=== PATIENT | female | born 1935 | race Two or more races ===

== ENCOUNTER 2018-04-12 13:53 | Inpatient (IN) | payer OTHER, BC ==
[2018-04-12 17:03] VITALS: BMI 21.9
[2018-04-12] MEDS ORDERED: Ophthalmic Irrigation, Soln OU ONE (17:40)
[2018-04-12] MEDS ORDERED: Ciprofloxacin 0.3% OPTH SOLN OD SCH (18:00)
[2018-04-12] MEDS ORDERED: Tuberculin 5 Units/0.1 ml Inj ID ONE (19:32)
[2018-04-12] MEDS: Ciprofloxacin 0.3% OPTH SOLN OD SCH (21:30)
[2018-04-12] MEDS: CIPROFLOXACIN OU SCH (21:50)
[2018-04-12] MEDS: ZIRGAN OU SCH (21:50)
[2018-04-12] MEDS: CROMOLYN OU SCH (21:51)
[2018-04-13] MEDS ORDERED: Oxycodone/Acetaminophen 5/325 mg Tab PO ONE (01:52)
[2018-04-13 07:02] LABS: INR 1.5; PROTHROMBIN TIME 16.5 Seconds (9.8-13.1)
[2018-04-13 07:09] LABS: MEAN CELL VOLUME 90.3 fl (81.0-99.0); MEAN CORPUSCULAR HEMOGLOBIN 31.2 pg (27.0-31.0); MEAN CORPUSCULAR HGB CONC 34.5 g/dL (33.0-37.0); RBC 3.22 Mil/uL (3.80-5.20); RED CELL DISTRIBUTION WIDTH 16.9 % (11.5-14.5); WHITE BLOOD COUNT 8.3 K/uL (4.8-10.8)
[2018-04-13 07:29] LABS: ALB/GLOB RATIO 0.6 (1.0-2.1); ALBUMIN 3.1 g/dL (3.5-5.0); CALCIUM 8.6 mg/dL (8.4-10.2)
[2018-04-13] MEDS: Pantoprazole 40 mg EC Tab PO SCH (08:50)
[2018-04-13] MEDS: Atropine 1% OPTH.SOLN 2ml OU SCH ×2 (08:51→17:08)
[2018-04-13] MEDS: ZIRGAN OU SCH ×4 (08:52→21:12)
[2018-04-13] MEDS: Ciprofloxacin 0.3% OPTH SOLN OD SCH ×4 (08:52→21:13)
[2018-04-13] MEDS: CROMOLYN OU SCH ×4 (08:54→21:10)
[2018-04-13] MEDS: KETOTIFEN OU SCH ×2 (08:55→17:07)
[2018-04-13] MEDS ORDERED: TOFACITINIB CITRATE 10 MG PO SCH (09:00)
[2018-04-13] MEDS ORDERED: VORTIOXETINE HYDROBROMIDE 5 MG PO SCH (09:00)
--- NOTE | 2018-04-13 11:15 | CP.PCM.CON ---
History of Present Illness - History of Present Illness History of Present Illness: hx of recent shoulder surgery post op developed VZV opthalmicus tyreated at [facility] cont rx Review of Systems - Review of Systems All systems: reviewed and no additional remarkable complaints except - Constitutional Constitutional: Anorexia - EENT Eyes: absent: As Per HPI, Blind Spots, Blurred Vision, Change in Vision, Decreased Night Vision, Diplopia, Discharge, Dry Eye, Exophthalmos, Floaters, Irritation, Itchy Eyes, Loss of Peripheral Vision, Pain, Photophobia, Requires Corrective Lenses, Sees Flashes, Spots in Vision, Tunnel Vision, Other Visual Disturbances, Loss of Vision, Other Ears: absent: As Per HPI, Decreased Hearing, Ear Discharge, Ear Pain, Tinnitus, Abnormal Hearing, Disequilibrium, Dizziness, Other Nose/Mouth/Throat: absent: As Per HPI, Epistaxis, Nasal Congestion, Nasal Discharge, Nasal Obstruction, Nasal Trauma, Nose Pain, Post Nasal Drip, Sinus Pain, Sinus Pressure, Bleeding Gums, Change in Voice, Dental Pain, Dry Mouth, Dysphagia, Halitosis, Hoarsness, Lip Swelling, Mouth Lesions, Mouth Pain, Odynophagia, Sore Throat, Throat Swelling, Tongue Swelling, Facial Pain, Neck Pain, Neck Mass, Other - Cardiovascular Cardiovascular: absent: As Per HPI, Acrocyanosis, Chest Pain, Chest Pain at Rest, Chest Pain with Activity, Claudication, Diaphoresis, Dyspnea, Dyspnea on Exertion, Edema, Irregular Heart Rhythm, Pain Radiating to Arm/Neck/Jaw, Leg Edema, Leg Ulcers, Lightheadedness, Orthopnea, Palpitations, Paroxysmal Nocturnal Dyspnea, Pedal Edema, Radiating Pain, Rapid Heart Rate, Slow Heart Rate, Syncope, Other - Respiratory Respiratory: absent: As Per HPI, Cough, Dyspnea, Hemoptysis, Dyspnea on Exertion, Wheezing, Snoring, Stridor, Pain on Inspiration, Chest Congestion, Excessive Mucous Production, Change in Mucous Color, Pain with Coughing, Other - Gastrointestinal Gastrointestinal: absent: As Per HPI, Abdominal Pain, Belching, Bloating, Change in Bowel Habits, Change in Stool Character, Coffee Ground Emesis, Constipation, Cramping, Diarrhea, Dyspepsia, Dysphagia, Early Satiety, Excessive Flatus, Fecal Incontinence, Heartburn, Hematemesis, Hematochezia, Loose Stools, Melena, Nausea, Odynophagia, Temesmus, Vomiting, Other - Genitourinary Genitourinary: absent: As Per HPI, Change in Urinary Stream, Difficulty Urinating, Dysuria, Flank Pain, Hematuria, Pyuria, Nocturia, Urinary Incontinence, Urinary Frequency, Urinary Hesitance, Urinary Urgency, Voiding Freq/Small Amts, Freq UTI, Hx Renal/Bladder Calculi, Hx /Renal Surgery, Bladder Distension, Other - Reproductive: Female Reproductive:Female: absent: As Per HPI, Amenorrhea, Amenorrhea/ Control, Currently Menstual, Cycle <21 Days, Cycle >35 Days, Cycle Variable, Menses 1-7 Days, Menses >/= 8 Days, Menses Variable, Cycle > 4 Weeks Between, No Menses for 6 Months, Heavy Menses, Light Menses, Normal Menses, Spotting Between Cycles, S/P Hysterectomy, Menopausal, Post Menopausal, Premenarche, Abnormal Vaginal Bleeding, Dysmenorrhea, Dyspareunia, Genital Lesions, Genital Pruritis, Pelvic Pain, Prolapse Symptoms, Sexual Dysfunction, Vaginal Discharge, Vaginal Dryness, Vaginal Odor, Vaginal Pruritis, Other - Menstruation Menstruation: absent: As Per HPI, Amenorrhea, Amenorrhea/ Control, Currently Menstual, Cycle <21 Days, Cycle >35 Days, Cycle Variable, Menses 1-7 Days, Menses >/= 8 Days, Menses Variable, Cycle > 4 Weeks Between, No Menses for 6 Months, Heavy Menses, Light Menses, Normal Menses, Spotting Between Cycles, S/P Hysterectomy, Menopausal, Post Menopausal, Premenarche, Abnormal Vaginal Bleeding, Dysmenorrhea, Other - Musculoskeletal Musculoskeletal: As Per HPI - Integumentary Integumentary: As Per HPI, Skin Pain, Wounds - Neurological Neurological: absent: As Per HPI, Abnormal Gait, Abnormal Hearing, Abnormal Movements, Abnormal Speech, Behavioral Changes, Burning Sensations, Confusion, Convulsions, Disequilibrium, Dizziness, Numbness, Focal Weakness, Frequent Falls, Headaches, Lack of Coordination, Loss of Vision, Memory Loss, Par esthesias, Radicular Pain, Restless Legs, Sensory Deficit, Syncope, Tingling, Tremor, Vertigo, Weakness, Other Visual Disturbances, Other - Psychiatric Psychiatric: absent: As Per HPI, Abnormal Sleep Pattern, Anhedonia, Anxiety, Auditory Hallucinations, Behavioral Changes, Change in Appetite, Change in Libido, Confusion, Depression, Difficulty Concentrating, Hallucinations, Homicidal Ideation, Hopelessness, Irritability, Memory Loss, Mood Swings, Panic Attacks, Paranoia, Suicidal Ideation, Visual Hallucinations, Tactile Hallucinations, Other - Endocrine Endocrine: absent: As Per HPI, Change in Body Appearance, Change in Libido, Cold Intolorance, Deepening of Voice, Excessive Sweating, Fatigue, Flushing, Heat Intolorance, Increase in Ring/Shoe/Hat Size, Palpitations, Polydipsia, Polyphagia, Polyuria, Other - Hematologic/Lymphatic Hematologic: absent: As Per HPI, Easy Bleeding, Easy Bruising, Lymphadenopathy, Other Past Patient History - Infectious Disease Hx of Infectious Diseases: None - Tetanus Immunizations Tetanus Immunization: Unknown - Past Medical History & Family History Past Medical History?: Yes - Past Social History Smoking Status: Never Smoked - CARDIAC Hx Cardiac Disorders: Yes (CAD,A.FIB) Hx Hypertension: Yes - PULMONARY Hx Respiratory Disorders: No - NEUROLOGICAL Hx Neurological Disorder: No - HEENT Hx HEENT Problems: No Other/Comment: wears glasses - RENAL Hx Chronic Kidney Disease: No - ENDOCRINE/METABOLIC Hx Endocrine Disorders: No - HEMATOLOGICAL/ONCOLOGICAL Hx AIDS: No Hx Human Immunodeficiency Virus (HIV): No - MUSCULOSKELETAL/RHEUMATOLOGICAL Hx Falls: Yes - GASTROINTESTINAL Hx Gastrointestinal Disorders: No - GENITOURINARY/GYNECOLOGICAL Hx Genitourinary Disorders: No - PSYCHIATRIC Hx Substance Use: No - SURGICAL HISTORY Hx Surgeries: Yes Other/Comment: Left PACEMAKER 2014 - ANESTHESIA Hx Anesthesia: Yes Hx Anesthesia Reactions: No Meds Allergies/Adverse Reactions: Allergies Allergy/AdvReac Type Severity Reaction Status Date / Time No Known Allergies Allergy Verified 04/12/18 16:53 - Medications Medications: Current Medications Acyclovir (Zovirax) 800 mg PO 5XD [facility]; Protocol Atropine Sulfate (Atropine 1% Oph Soln) 1 drop OU BID [facility] Last Admin: 04/13/18 08:51 Dose: 1 drop Ciprofloxacin (Ciloxan 0.3% Ophth Soln) 1 drop OD QID [facility] Last Admin: 04/13/18 08:52 Dose: 1 drop Gabapentin (Neurontin) 300 mg PO TID [facility] Last Admin: 04/13/18 08:50 Dose: 300 mg Home Med (Mirtazapine [Mirtazapine]) 5 mg PO DAILY [facility] Home Med ([place]-3/Dha/Epa/Fish Oil [Fish Oil 500 Mg Softgel]) 1 each PO DAILY [facility] Home Med (Tofacitinib Citrate [Xeljanz]) 10 mg PO DAILY [facility] Home Med (Vortioxetine Hydrobromide [Trintellix]) 5 mg PO DAILY [facility] Home Med (Patient's Own Medication) 0.3 unit OU HS [facility] Last Admin: 04/12/18 21:50 Dose: 0.3 unit Home Med (Patient's Own Medication) 1 unit OU QID [facility] Last Admin: 04/13/18 08:54 Dose: 1 unit Home Med (Patient's Own Medication) 1 unit OU QID [facility] Last Admin: 04/13/18 08:52 Dose: 1 unit Home Med (Patient's Own Medication) 1 unit OU BID [facility] Last Admin: 04/13/18 08:55 Dose: 1 unit Home Med (Hydrocodone/Acetaminophen [Hydrocodone-Acetamin 5-325 Mg]) 5 mg PO Q6 PRN PRN Reason: for pain level 4-7 Pantoprazole Sodium (Protonix Ec Tab) 40 mg PO ACB [facility] Last Admin: 04/13/18 08:50 Dose: 40 mg Rivaroxaban (Xarelto) 20 mg PO DAILY [facility]; Protocol Physical Exam - Constitutional Appears: No Acute Distress, Cachectic, Chronically Ill - Head Exam Head Exam: NORMOCEPHALIC - Eye Exam Eye Exam: absent: Scleral icterus Additional comments: right eye min conjunctivitis no ulcers - ENT Exam ENT Exam: Mucous Membranes Dry - Neck Exam Neck exam: Negative for: Lymphadenopathy - Respiratory Exam Respiratory Exam: Decreased Breath Sounds - Cardiovascular Exam Cardiovascular Exam: REGULAR RHYTHM - GI/Abdominal Exam GI & Abdominal Exam: Diminished Bowel Sounds, Soft. absent: Tenderness - Rectal Exam Rectal Exam: Deferred - Exam Exam: NORMAL INSPECTION - Extremities Exam Extremities exam: Negative for: pedal edema - Back Exam Back exam: absent: CVA tenderness (L), CVA tenderness (R) - Neurological Exam Neurological exam: Alert, CN II-XII Intact, Oriented x3, Reflexes Normal - Psychiatric Exam Psychiatric exam: Depressed - Skin Skin Exam: Dry, Vesicles Additional comments: dry vesicles + Results - Vital Signs Recent Vital Signs: Last Vital Signs Temp 97.5 F L 04/13/18 08:13 Pulse 96 H 04/13/18 08:13 Resp 20 04/13/18 08:13 BP 103/59 L 04/13/18 08:13 Pulse Ox 99 04/13/18 08:13 - Labs Result Diagrams: 04/13/18 06:00 04/13/18 06:00 Labs: Laboratory Results - last 24 hr 04/13/18 04/13/18 04/13/18 06:00 06:00 06:00 WBC 8.3 RBC 3.22 L Hgb 10.0 L Hct 29.1 L MCV 90.3 MCH 31.2 H MCHC 34.5 RDW 16.9 H Plt Count 266 PT 16.5 H INR 1.5 Sodium 133 Potassium 4.9 Chloride 100 Carbon Dioxide 24 Anion Gap 14 BUN 17 Creatinine 1.3 H Est GFR ( Amer) 48 Est GFR (Non-Af Amer) 39 Random Glucose 105 Calcium 8.6 Phosphorus Magnesium 1.6 Total Bilirubin 1.2 AST 67 H D ALT 62 H Alkaline Phosphatase 162 H D Total Protein 8.4 H Albumin 3.1 L Globulin 5.2 H Albumin/Globulin Ratio 0.6 L 04/13/18 07:12 WBC RBC Hgb Hct MCV MCH MCHC RDW Plt Count PT INR Sodium Potassium Chloride Carbon Dioxide Anion Gap BUN Creatinine Est GFR ( Amer) Est GFR (Non-Af Amer) Random Glucose Calcium Phosphorus 4.8 H Magnesium Total Bilirubin AST ALT Alkaline Phosphatase Total Protein Albumin Globulin Albumin/Globulin Ratio Assessment & Plan (1) VZV (varicella-zoster virus) infection Status: Acute (2) Zoster ophthalmicus Status: Acute (3) Zoster ophthalmicus Status: Acute (4) Herpes zoster ophthalmicus of right eye Status: Acute (5) Herpes zoster ophthalmicus of right eye Status: Acute
--- NOTE | 2018-04-13 12:22 | RAD ---
PROCEDURE: Radiographs of the right humerus. HISTORY: s/p R humerus ORIF COMPARISON: None. FINDINGS: BONES: Limited examination consists of only a single view. The patient is status post ORIF right proximal humerus. Plate and screw fixation device noted. No displaced fractures identified. SOFT TISSUES: Normal. OTHER FINDINGS: None. IMPRESSION: Status post ORIF proximal right humerus.
[2018-04-13] MEDS: Omega-3-Acid Ethyl Esters 1 GM Cap PO SCH (12:27)
--- NOTE | 2018-04-13 14:56 | CP.PCM.CON ---
History of Present Illness - History of Present Illness History of Present Illness: Patient is an 82 y/o female well known to Dr. Loja's practice, s/p R humerus ORIF performed 03/25/18. She was discharged from [facility] following her procedure stable to [facility] rehab. 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 She was transferred to [facility] for continuance of rehabilitation for her R arm. She was recently seen by Dr. Loja in the office where trini were removed. Her pain is well controlled. She denies CP/SOB/N/V/D/fever/dysuria/melena. She admits to R eye pain due to her infection. Review of Systems - Review of Systems All systems: reviewed and no additional remarkable complaints except Review of Systems: as per HPI Past Patient History - Infectious Disease Hx of Infectious Diseases: None - Tetanus Immunizations Tetanus Immunization: Unknown - Past Medical History & Family History Past Medical History?: Yes Past Family History: Reviewed and not pertinent - Past Social History Smoking Status: Never Smoked Alcohol: None Drugs: Denies - CARDIAC Hx Cardiac Disorders: Yes (CAD,A.FIB) Hx Hypertension: Yes - PULMONARY Hx Respiratory Disorders: No - NEUROLOGICAL Hx Neurological Disorder: No - HEENT Hx HEENT Problems: No Other/Comment: wears glasses - RENAL Hx Chronic Kidney Disease: No - ENDOCRINE/METABOLIC Hx Endocrine Disorders: No - HEMATOLOGICAL/ONCOLOGICAL Hx AIDS: No Hx Human Immunodeficiency Virus (HIV): No - MUSCULOSKELETAL/RHEUMATOLOGICAL Hx Falls: Yes - GASTROINTESTINAL Hx Gastrointestinal Disorders: No - GENITOURINARY/GYNECOLOGICAL Hx Genitourinary Disorders: No - PSYCHIATRIC Hx Substance Use: No - SURGICAL HISTORY Hx Surgeries: Yes Other/Comment: Left PACEMAKER 2014 - ANESTHESIA Hx Anesthesia: Yes Hx Anesthesia Reactions: No Meds Allergies/Adverse Reactions: Allergies Allergy/AdvReac Type Severity Reaction Status Date / Time No Known Allergies Allergy Verified 04/12/18 16:53 - Medications Medications: Current Medications Acyclovir (Zovirax) 800 mg PO 5XD [facility]; Protocol Last Admin: 04/13/18 12:30 Dose: 800 mg Atropine Sulfate (Atropine 1% Oph Soln) 1 drop OU BID [facility] Last Admin: 04/13/18 08:51 Dose: 1 drop Ciprofloxacin (Ciloxan 0.3% Ophth Soln) 1 drop OD QID [facility] Last Admin: 04/13/18 12:27 Dose: 1 drop Gabapentin (Neurontin) 300 mg PO TID [facility] Last Admin: 04/13/18 12:30 Dose: 300 mg Home Med (Tofacitinib Citrate [Xeljanz]) 10 mg PO DAILY [facility] Home Med (Vortioxetine Hydrobromide [Trintellix]) 5 mg PO DAILY [facility] Home Med (Patient's Own Medication) 0.3 unit OU HS [facility] Last Admin: 04/12/18 21:50 Dose: 0.3 unit Home Med (Patient's Own Medication) 1 unit OU QID [facility] Last Admin: 04/13/18 12:27 Dose: 1 unit Home Med (Patient's Own Medication) 1 unit OU QID [facility] Last Admin: 04/13/18 12:28 Dose: 1 unit Home Med (Patient's Own Medication) 1 unit OU BID [facility] Last Admin: 04/13/18 08:55 Dose: 1 unit Mirtazapine (Remeron) 7.5 mg PO DAILY [facility] Last Admin: 04/13/18 12:26 Dose: 7.5 mg Vqetd-2-Cocm Ethyl Esters (Lovaza) 1 gm PO DAILY [facility] Last Admin: 04/13/18 12:27 Dose: 1 gm Oxycodone/Acetaminophen (Percocet 5/325 Mg Tab) 1 tab PO Q6 PRN PRN Reason: for pain level 4-7 Pantoprazole Sodium (Protonix Ec Tab) 40 mg PO ACB [facility] Last Admin: 04/13/18 08:50 Dose: 40 mg Rivaroxaban (Xarelto) 15 mg PO DAILY [facility]; Protocol Last Admin: 04/13/18 12:31 Dose: 15 mg Physical Exam - Constitutional Appears: Well, No Acute Distress - Head Exam Head Exam: ATRAUMATIC, NORMOCEPHALIC - Eye Exam Eye Exam: Periorbital swelling (to R eye with diffuse herpetic lesion ) - ENT Exam ENT Exam: Mucous Membranes Moist - Respiratory Exam Respiratory Exam: NORMAL BREATHING PATTERN - Cardiovascular Exam Cardiovascular Exam: +S1, +S2 - GI/Abdominal Exam GI & Abdominal Exam: Normal Bowel Sounds - Extremities Exam Additional comments: RUE: intact in sling, surgical wound well healed, no drainage sensation intact MN/UN/RN motor intact MN/UN/RN radial pulse intact - Neurological Exam Neurological exam: Alert, Oriented x3 - Psychiatric Exam Psychiatric exam: Normal Affect, Normal Mood - Skin Skin Exam: Normal Color, Warm Results - Vital Signs Recent Vital Signs: Last Vital Signs Temp 97.5 F L 04/13/18 08:13 Pulse 96 H 04/13/18 08:13 Resp 20 04/13/18 08:13 BP 103/59 L 04/13/18 08:13 Pulse Ox 99 04/13/18 08:13 - Labs Result Diagrams: 04/13/18 06:00 04/13/18 06:00 Labs: Laboratory Results - last 24 hr 04/13/18 04/13/18 04/13/18 06:00 06:00 06:00 WBC 8.3 RBC 3.22 L Hgb 10.0 L Hct 29.1 L MCV 90.3 MCH 31.2 H MCHC 34.5 RDW 16.9 H Plt Count 266 PT 16.5 H INR 1.5 Sodium 133 Potassium 4.9 Chloride 100 Carbon Dioxide 24 Anion Gap 14 BUN 17 Creatinine 1.3 H Est GFR ( Amer) 48 Est GFR (Non-Af Amer) 39 Random Glucose 105 Calcium 8.6 Phosphorus Magnesium 1.6 Total Bilirubin 1.2 AST 67 H D ALT 62 H Alkaline Phosphatase 162 H D Total Protein 8.4 H Albumin 3.1 L Globulin 5.2 H Albumin/Globulin Ratio 0.6 L 04/13/18 07:12 WBC RBC Hgb Hct MCV MCH MCHC RDW Plt Count PT INR Sodium Potassium Chloride Carbon Dioxide Anion Gap BUN Creatinine Est GFR ( Amer) Est GFR (Non-Af Amer) Random Glucose Calcium Phosphorus 4.8 H Magnesium Total Bilirubin AST ALT Alkaline Phosphatase Total Protein Albumin Globulin Albumin/Globulin Ratio - Impressions Impression: Accession No. : [id number] Patient Name / ID : DIANE GRAY / [id number] Exam Date : 04/13/2018 08:04:17 ( Approved ) Study Comment : Sex / Age : F / [id number] Creator : Juan Carlos Juares MD Dictator : Juan Carlos Juares MD Administrative Assistant : Lead Teacher : Juan Carlos Juares MD Approver2 : Report Date : 04/13/2018 12:15:48 My Comment : PROCEDURE: Radiographs of the right humerus. HISTORY: s/p R humerus ORIF COMPARISON: None. FINDINGS: BONES: Limited examination consists of only a single view. The patient is status post ORIF right proximal humerus. Plate and screw fixation device noted. No displaced fractures identified. SOFT TISSUES: Normal. OTHER FINDINGS: None. IMPRESSION: Status post ORIF proximal right humerus. Assessment & Plan (1) Zoster ophthalmicus Assessment and Plan: as per ID Status: Acute (2) Closed fracture of shaft of right humerus Assessment and Plan: POD #19 s/p R humerus fx ORIF doing well -Continue sling -PT/OT NWB RUE -repeat X-rays show Fixation intact, no changes from surgery -orthopedically stable -above d/w Dr. Loja in agreement Status: Inactive
[2018-04-13] MEDS: Oxycodone/Acetaminophen 5/325 mg Tab PO PRN (15:34)
[2018-04-13] MEDS: CIPROFLOXACIN OU SCH (21:11)
[2018-04-14] MEDS: Pantoprazole 40 mg EC Tab PO SCH (06:42)
[2018-04-14] MEDS: KETOTIFEN OU SCH ×2 (09:40→18:09)
[2018-04-14] MEDS: Omega-3-Acid Ethyl Esters 1 GM Cap PO SCH (09:40)
[2018-04-14] MEDS: Atropine 1% OPTH.SOLN 2ml OU SCH ×2 (09:45→17:52)
[2018-04-14] MEDS: Ciprofloxacin 0.3% OPTH SOLN OD SCH ×4 (09:50→21:33)
[2018-04-14] MEDS: CROMOLYN OU SCH ×4 (09:55→21:28)
[2018-04-14] MEDS: ZIRGAN OU SCH ×4 (10:00→21:29)
--- NOTE | 2018-04-14 11:01 | CP.PCM.HP ---
History of Present Illness - History of Present Illness History of Present Illness: pt is seen and examined, H & P dictated #[id number] Present on Admission - Present on Admission Any Indicators Present on Admission: No History of DVT/PE: No History of Uncontrolled Diabetes: No Urinary Catheter: No Decubitus Ulcer Present: No Past Patient History - Infectious Disease Hx of Infectious Diseases: None - Tetanus Immunizations Tetanus Immunization: Unknown - Past Medical History & Family History Past Medical History?: Yes Past Family History: Reviewed and not pertinent - Past Social History Smoking Status: Never Smoked Alcohol: None Drugs: Denies - CARDIAC Hx Cardiac Disorders: Yes (CAD,A.FIB) Hx Hypertension: Yes - PULMONARY Hx Respiratory Disorders: No - NEUROLOGICAL Hx Neurological Disorder: No - HEENT Hx HEENT Problems: No Other/Comment: wears glasses - RENAL Hx Chronic Kidney Disease: No - ENDOCRINE/METABOLIC Hx Endocrine Disorders: No - HEMATOLOGICAL/ONCOLOGICAL Hx AIDS: No Hx Human Immunodeficiency Virus (HIV): No - MUSCULOSKELETAL/RHEUMATOLOGICAL Hx Falls: Yes - GASTROINTESTINAL Hx Gastrointestinal Disorders: No - GENITOURINARY/GYNECOLOGICAL Hx Genitourinary Disorders: No - PSYCHIATRIC Hx Substance Use: No - SURGICAL HISTORY Hx Surgeries: Yes Other/Comment: Left PACEMAKER 2014 - ANESTHESIA Hx Anesthesia: Yes Hx Anesthesia Reactions: No Meds Allergies/Adverse Reactions: Allergies Allergy/AdvReac Type Severity Reaction Status Date / Time No Known Allergies Allergy Verified 04/12/18 16:53 Results - Vital Signs Recent Vital Signs: Last Vital Signs Temp 97 F L 04/14/18 08:12 Pulse 85 04/14/18 08:12 Resp 20 04/14/18 08:12 BP 120/67 04/14/18 08:12 Pulse Ox 98 04/14/18 08:12 - Labs Result Diagrams: 04/13/18 06:00 04/13/18 06:00
--- NOTE | 2018-04-14 12:16 | CP.PCM.CON ---
History of Present Illness - History of Present Illness History of Present Illness: Psychiatry consult note CC: "I'm okay." HPI: 82 yo female admitted to TCU s/p humerus ORIF performed on 03/25/18. Patient reports that her mood has been stable since starting Remeron. She denies acute depression/anxiety/AH/VH/SI/HI. She denies acute psychiatric complaints. 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 -Continue Remeron 7.5 mg PO HS -No acute psychiatric admission indicated at this time Past Patient History - Infectious Disease Hx of Infectious Diseases: None - Tetanus Immunizations Tetanus Immunization: Unknown - Past Medical History & Family History Past Medical History?: Yes Past Family History: Reviewed and not pertinent - Past Social History Smoking Status: Never Smoked Alcohol: None Drugs: Denies - CARDIAC Hx Cardiac Disorders: Yes (CAD,A.FIB) Hx Hypertension: Yes - PULMONARY Hx Respiratory Disorders: No - NEUROLOGICAL Hx Neurological Disorder: No - HEENT Hx HEENT Problems: No Other/Comment: wears glasses - RENAL Hx Chronic Kidney Disease: No - ENDOCRINE/METABOLIC Hx Endocrine Disorders: No - HEMATOLOGICAL/ONCOLOGICAL Hx AIDS: No Hx Human Immunodeficiency Virus (HIV): No - MUSCULOSKELETAL/RHEUMATOLOGICAL Hx Falls: Yes - GASTROINTESTINAL Hx Gastrointestinal Disorders: No - GENITOURINARY/GYNECOLOGICAL Hx Genitourinary Disorders: No - PSYCHIATRIC Hx Substance Use: No - SURGICAL HISTORY Hx Surgeries: Yes Other/Comment: Left PACEMAKER 2013 - ANESTHESIA Hx Anesthesia: Yes Hx Anesthesia Reactions: No Meds Allergies/Adverse Reactions: Allergies Allergy/AdvReac Type Severity Reaction Status Date / Time No Known Allergies Allergy Verified 04/12/18 16:53 - Medications Medications: Current Medications Acyclovir (Zovirax) 800 mg PO 5XD [facility]; Protocol Last Admin: 04/14/18 09:39 Dose: 800 mg Atropine Sulfate (Atropine 1% Oph Soln) 1 drop OU BID [facility] Last Admin: 04/14/18 09:45 Dose: 1 drop Ciprofloxacin (Ciloxan 0.3% Ophth Soln) 1 drop OD QID [facility] Last Admin: 04/14/18 09:50 Dose: 1 drop Gabapentin (Neurontin) 300 mg PO TID [facility] Last Admin: 04/14/18 09:40 Dose: 300 mg Home Med (Tofacitinib Citrate [Xeljanz]) 10 mg PO DAILY [facility] Home Med (Vortioxetine Hydrobromide [Trintellix]) 5 mg PO DAILY [facility] Home Med (Patient's Own Medication) 0.3 unit OU HS [facility] Last Admin: 04/13/18 21:11 Dose: 0.3 unit Home Med (Patient's Own Medication) 1 unit OU QID [facility] Last Admin: 04/14/18 09:55 Dose: 1 unit Home Med (Patient's Own Medication) 1 unit OU QID [facility] Last Admin: 04/14/18 10:00 Dose: 1 unit Home Med (Patient's Own Medication) 1 unit OU BID [facility] Last Admin: 04/14/18 09:40 Dose: 1 unit Mirtazapine (Remeron) 7.5 mg PO DAILY@2200 [facility] [id number] Ethyl Esters (Lovaza) 1 gm PO DAILY [facility] Last Admin: 04/14/18 09:40 Dose: 1 gm Oxycodone/Acetaminophen (Percocet 5/325 Mg Tab) 1 tab PO Q6 PRN PRN Reason: for pain level 4-7 Last Admin: 04/13/18 15:34 Dose: 1 tab Pantoprazole Sodium (Protonix Ec Tab) 40 mg PO ACB [facility] Last Admin: 04/14/18 06:42 Dose: 40 mg Rivaroxaban (Xarelto) 15 mg PO DAILY [facility]; Protocol Last Admin: 04/14/18 09:40 Dose: 15 mg Results - Vital Signs Recent Vital Signs: Last Vital Signs Temp 97 F L 04/14/18 08:12 Pulse 85 04/14/18 08:12 Resp 20 04/14/18 08:12 BP 120/67 04/14/18 08:12 Pulse Ox 98 04/14/18 08:12 - Labs Result Diagrams: 04/13/18 06:00 04/13/18 06:00
--- NOTE | 2018-04-14 15:00 | CP.PCM.PN ---
Subjective - Date & Time of Evaluation Date of Evaluation: 04/14/18 Time of Evaluation: 14:59 - Subjective Subjective: Patient seen and examined at bedside comfortable. No complaints of pain. Tolerating PT well. No new complaints. Objective - Vital Signs/Intake and Output Vital Signs (last 24 hours): Temp Pulse Resp BP Pulse Ox 97 F L 85 20 120/67 98 04/14/18 08:12 04/14/18 08:12 04/14/18 08:12 04/14/18 08:12 04/14/18 08:12 - Medications Medications: Current Medications Acyclovir (Zovirax) 800 mg PO 5XD [facility]; Protocol Last Admin: 04/14/18 13:47 Dose: 800 mg Atropine Sulfate (Atropine 1% Oph Soln) 1 drop OU BID [facility] Last Admin: 04/14/18 09:45 Dose: 1 drop Ciprofloxacin (Ciloxan 0.3% Ophth Soln) 1 drop OD QID [facility] Last Admin: 04/14/18 09:50 Dose: 1 drop Gabapentin (Neurontin) 300 mg PO TID [facility] Last Admin: 04/14/18 13:45 Dose: 300 mg Home Med (Tofacitinib Citrate [Xeljanz]) 10 mg PO DAILY [facility] Home Med (Vortioxetine Hydrobromide [Trintellix]) 5 mg PO DAILY [facility] Home Med (Patient's Own Medication) 0.3 unit OU HS [facility] Last Admin: 04/13/18 21:11 Dose: 0.3 unit Home Med (Patient's Own Medication) 1 unit OU QID [facility] Last Admin: 04/14/18 13:45 Dose: 1 unit Home Med (Patient's Own Medication) 1 unit OU QID [facility] Last Admin: 04/14/18 13:52 Dose: 1 unit Home Med (Patient's Own Medication) 1 unit OU BID [facility] Last Admin: 04/14/18 09:40 Dose: 1 unit Mirtazapine (Remeron) 7.5 mg PO DAILY@2200 [facility] Ciohx-6-Ilcg Ethyl Esters (Lovaza) 1 gm PO DAILY [facility] Last Admin: 04/14/18 09:40 Dose: 1 gm Oxycodone/Acetaminophen (Percocet 5/325 Mg Tab) 1 tab PO Q6 PRN PRN Reason: for pain level 4-7 Last Admin: 04/13/18 15:34 Dose: 1 tab Pantoprazole Sodium (Protonix Ec Tab) 40 mg PO ACB [facility] Last Admin: 04/14/18 06:42 Dose: 40 mg Rivaroxaban (Xarelto) 15 mg PO DAILY [facility]; Protocol Last Admin: 04/14/18 09:40 Dose: 15 mg - Labs Labs: 04/13/18 06:00 04/13/18 06:00 PT 16.5 Seconds (9.8-13.1) H 04/13/18 06:00 INR 1.5 04/13/18 06:00 - Extremities Exam Additional comments: RUE: intact in sling, surgical wound well healed, no drainage sensation intact MN/UN/RN motor intact MN/UN/RN radial pulse intact Assessment and Plan (1) Zoster ophthalmicus Status: Acute (2) Closed fracture of shaft of right humerus Assessment & Plan: POD #20 s/p R humerus fx ORIF doing well -Continue sling -PT/OT NWB RUE, begin Gentle ROM -orthopedically stable -above d/w Dr. Loja in agreement Status: Inactive
[2018-04-14] MEDS: CIPROFLOXACIN OU SCH (21:28)
[2018-04-15] MEDS ORDERED: DiphenhydrAMINE 50 mg/ml Inj IVP STA (02:22)
--- NOTE | 2018-04-15 06:06 | HP ---
CHIEF COMPLAINT: Transferred from [facility] for subacute rehab. HISTORY OF PRESENT ILLNESS: Ms. Payne is an 82-year-old female with past medical history of atrial fibrillation, coronary artery disease, status post permanent pacemaker placement, hypertension, rheumatoid arthritis, chronic hyponatremia, osteoarthritis, depression, hyperproteinemia, recent history of fall with right humeral fracture, underwent ORIF done by Dr. Loja. As the patient was stabilized, the patient was sent to [facility] where the patient developed herpes zoster ophthalmicus with right dendritic corneal ulcer and right iritis. The patient was transferred to [facility] on 04/05/2018, was in the hospital until 04/12/2018, discharged to [facility] for further rehabilitation. The patient is feeling better. Denied any headache or dizziness. Denied any visual changes. Denied any chest pain, shortness of breath, or wheezing. Denied any nausea, vomiting, abdominal pain, diarrhea, or constipation. Denied any other neurologic symptoms. Has been participating in physical therapy. Right upper extremity movements improving. PAST MEDICAL HISTORY: As described, CAD, atrial fibrillation, status post permanent pacemaker placement, hypertension, hyponatremia, osteoarthritis, hyperproteinemia, rheumatoid arthritis, depression, status post right upper extremity humeral fracture, status post fall. PAST SURGICAL HISTORY: x4, hysterectomy, ORIF of the right humeral fracture recently. FAMILY HISTORY: Diabetes mellitus in brother and father. Mother at age 80. She has nine sisters and three brothers. Family history of psychiatric illness in the sisters. SOCIAL HISTORY: Denies smoking, alcohol, or drug abuse. PERSONAL HISTORY: She is , living with her , having four children. She is retired. ALLERGIES: NO KNOWN DRUG ALLERGIES. MEDICATIONS: Include Xarelto 20 mg daily, Protonix 40 mg daily, fish oil, Remeron 5 mg daily, losartan 50 mg p.o. b.i.d., calcium carbonate, Percocet as needed, Trintellix 5 mg daily, Xeljanz 10 mg daily, acyclovir 800 mg p.o. five times a day, Neurontin 300 mg p.o. t.i.d., atropine eye drops, ciprofloxacin eye drops. REVIEW OF SYSTEMS: As described in history of present illness. All other systems reviewed and were found to be negative. PHYSICAL EXAMINATION: GENERAL: Elderly female, lying in bed, in no acute distress. VITAL SIGNS: Blood pressure 127/68, pulse 100, respirations 20, temperature 97 degrees Fahrenheit, O2 sat is 100% on room air. HEENT: Pupils are equal, round, and reacting to light and accommodation. Extraocular muscles intact. No icterus. No pallor. No oral thrush. Healing vesicular lesions on the right forehead. Slightly conjunctival redness, right eye. NECK: Supple. No JVD. LUNGS: Bilateral vesicular breath sounds. No wheezing. No rhonchi. CARDIOVASCULAR SYSTEM: S1 and S2 are present, irregular. ABDOMEN: Soft and nontender. Bowel sounds present. No guarding. No rigidity. No rebound tenderness noted. CENTRAL NERVOUS SYSTEM: Alert, awake, oriented x3. No focal deficits noted. EXTREMITIES: No edema. Palpable peripheral pulses. LABORATORY DATA: Labs from the hospital: WBC 8.3, hemoglobin 10, hematocrit 29.1, platelets 266. PT 16.5, INR 1.5. Sodium 133, potassium 4.9, chloride 100, bicarb 24, BUN 17, creatinine 1.3, glucose 105, calcium 8.6, phosphorus 4.8, magnesium 1.6. Total bilirubin 1.2, AST 67, ALT 62, alkaline phosphatase 162, total protein 8.4, albumin 3.1. Humeral x-ray, status post ORIF of proximal right humerus. ASSESSMENT AND PLAN: Elderly female with history of hypertension, hyperproteinemia, rheumatoid arthritis, osteoarthritis, atrial fibrillation, status post permanent pacemaker placement and on long-term anticoagulation, depression, status post fall with right humeral fracture, status post open reduction and internal fixation and recent admission to [facility] from 04/05/2018 to 04/12/2018 for herpes zoster ophthalmicus. Has been on antiviral therapy. As the patient is stabilized, transfer to [facility] for further physical therapy. 1. Right upper extremity humeral fracture, status post open reduction and internal fixation, for acute rehabilitation. 2. Herpes zoster ophthalmicus with right dendritic corneal ulcer, improved, on acyclovir and Neurontin. 3. History of hypertension. 4. History of atrial fibrillation, on Xarelto. 5. History of osteoarthritis. 6. History of rheumatoid arthritis. 7. History of depression. 8. History of chronic hyponatremia. 9. History of hyperproteinemia. PLAN: The patient is admitted to transitional care unit for rehabilitation. We will continue with physical therapy as per Orthopedics. Orthopedic consultation appreciated. Recommended sling and physical therapy. We will request ID consult with Dr. Duarte who recommended to continue with acyclovir and Neurontin. The patient's blood pressure is stable on current medication. Continue with losartan 50 mg p.o. b.i.d. Continue with Xarelto and Xeljanz for osteoarthritis. Continue with Trintellix and Remeron as recommended by Psychiatry. We will obtain psychiatric evaluation. Continue with pain management. We will continue with the GI prophylaxis. We will add further recommendations as her clinical course progresses. Tam Pettit MD
[2018-04-15] MEDS: Pantoprazole 40 mg EC Tab PO SCH (08:08)
[2018-04-15] MEDS: Ciprofloxacin 0.3% OPTH SOLN OD SCH ×4 (08:08→21:45)
[2018-04-15] MEDS: CROMOLYN OU SCH ×4 (08:13→22:19)
[2018-04-15] MEDS: KETOTIFEN OU SCH ×2 (08:18→17:50)
[2018-04-15] MEDS: Atropine 1% OPTH.SOLN 2ml OU SCH ×2 (08:25→17:46)
[2018-04-15] MEDS: Omega-3-Acid Ethyl Esters 1 GM Cap PO SCH (08:29)
[2018-04-15] MEDS: ZIRGAN OU SCH ×4 (09:33→22:20)
[2018-04-15] MEDS: Oxycodone/Acetaminophen 5/325 mg Tab PO PRN (12:07)
--- NOTE | 2018-04-15 13:23 | CP.PCM.PN ---
Subjective - Date & Time of Evaluation Date of Evaluation: 04/15/18 Time of Evaluation: 13:21 - Subjective Subjective: Patient states pain in shoulder controlled. No new complaints. Objective - Vital Signs/Intake and Output Vital Signs (last 24 hours): Temp Pulse Resp BP Pulse Ox 97.3 F L 103 H 20 127/68 98 04/14/18 21:02 04/14/18 21:02 04/14/18 21:02 04/14/18 21:02 04/14/18 21:02 - Medications Medications: Current Medications Acyclovir (Zovirax) 800 mg PO 5XD [facility]; Protocol Last Admin: 04/15/18 12:09 Dose: 800 mg Atropine Sulfate (Atropine 1% Oph Soln) 1 drop OU BID [facility] Last Admin: 04/15/18 08:25 Dose: 1 drop Ciprofloxacin (Ciloxan 0.3% Ophth Soln) 1 drop OD QID [facility] Last Admin: 04/15/18 13:13 Dose: 1 drop Gabapentin (Neurontin) 300 mg PO TID [facility] Last Admin: 04/15/18 12:09 Dose: 300 mg Home Med (Tofacitinib Citrate [Xeljanz]) 10 mg PO DAILY [facility] Home Med (Vortioxetine Hydrobromide [Trintellix]) 5 mg PO DAILY [facility] Home Med (Patient's Own Medication) 0.3 unit OU HS [facility] Last Admin: 04/14/18 21:28 Dose: 0.3 unit Home Med (Patient's Own Medication) 1 unit OU QID [facility] Last Admin: 04/15/18 13:18 Dose: 1 unit Home Med (Patient's Own Medication) 1 unit OU QID [facility] Last Admin: 04/15/18 12:09 Dose: 1 unit Home Med (Patient's Own Medication) 1 unit OU BID [facility] Last Admin: 04/15/18 08:18 Dose: 1 unit Mirtazapine (Remeron) 7.5 mg PO DAILY@2200 [facility] Last Admin: 04/14/18 23:15 Dose: 7.5 mg [id number]-[id number] Ethyl Esters (Lovaza) 1 gm PO DAILY [facility] Last Admin: 04/15/18 08:29 Dose: 1 gm Oxycodone/Acetaminophen (Percocet 5/325 Mg Tab) 1 tab PO Q6 PRN PRN Reason: for pain level 4-7 Last Admin: 04/15/18 12:07 Dose: 1 tab Pantoprazole Sodium (Protonix Ec Tab) 40 mg PO ACB [facility] Last Admin: 04/15/18 08:08 Dose: 40 mg Rivaroxaban (Xarelto) 15 mg PO DAILY [facility]; Protocol Last Admin: 04/15/18 08:30 Dose: 15 mg - Labs Labs: 04/13/18 06:00 04/13/18 06:00 PT 16.5 Seconds (9.8-13.1) H 04/13/18 06:00 INR 1.5 04/13/18 06:00 - Extremities Exam Additional comments: Right shoulder incision well healed. +ROM fingers/wrist, sesnation intact +radial pulse Assessment and Plan (1) Closed fracture of shaft of right humerus Assessment & Plan: POD#21 s/p right shoulder ORIF begin gentle ROM with PT orthopedically stable PT/OT encourage OOB d/w Dr. Loja, agrees with above Status: Inactive
--- NOTE | 2018-04-15 19:04 | CP.PCM.PN ---
Subjective - Date & Time of Evaluation Date of Evaluation: 04/15/18 Time of Evaluation: 19:04 - Subjective Subjective: pt is feeling better, rt fore head rash is healing, no cp, no sob Objective - Vital Signs/Intake and Output Vital Signs (last 24 hours): Temp Pulse Resp BP Pulse Ox 97.2 F L 88 20 124/70 100 04/15/18 16:27 04/15/18 16:27 04/15/18 16:27 04/15/18 16:27 04/15/18 16:27 - Medications Medications: Current Medications Acyclovir (Zovirax) 800 mg PO 5XD [facility]; Protocol Last Admin: 04/15/18 17:42 Dose: 800 mg Atropine Sulfate (Atropine 1% Oph Soln) 1 drop OU BID [facility] Last Admin: 04/15/18 17:46 Dose: 1 drop Ciprofloxacin (Ciloxan 0.3% Ophth Soln) 1 drop OD QID [facility] Last Admin: 04/15/18 17:55 Dose: 1 drop Gabapentin (Neurontin) 300 mg PO TID [facility] Last Admin: 04/15/18 17:43 Dose: 300 mg Home Med (Tofacitinib Citrate [Xeljanz]) 10 mg PO DAILY [facility] Home Med (Vortioxetine Hydrobromide [Trintellix]) 5 mg PO DAILY [facility] Home Med (Patient's Own Medication) 0.3 unit OU HS [facility] Last Admin: 04/14/18 21:28 Dose: 0.3 unit Home Med (Patient's Own Medication) 1 unit OU QID [facility] Last Admin: 04/15/18 17:41 Dose: 1 unit Home Med (Patient's Own Medication) 1 unit OU QID [facility] Last Admin: 04/15/18 18:01 Dose: 1 unit Home Med (Patient's Own Medication) 1 unit OU BID [facility] Last Admin: 04/15/18 17:50 Dose: 1 unit Influenza Virus Vaccine (Fluzone High-Dose(65yr Up)Pf) 180 mcg IM .ONCE ONE Stop: 04/15/18 18:39 Mirtazapine (Remeron) 7.5 mg PO DAILY@2200 [facility] Last Admin: 04/14/18 23:15 Dose: 7.5 mg [id number]-7-[id number] Ethyl Esters (Lovaza) 1 gm PO DAILY [facility] Last Admin: 04/15/18 08:29 Dose: 1 gm Oxycodone/Acetaminophen (Percocet 5/325 Mg Tab) 1 tab PO Q6 PRN PRN Reason: for pain level 4-7 Last Admin: 04/15/18 12:07 Dose: 1 tab Pantoprazole Sodium (Protonix Ec Tab) 40 mg PO ACB [facility] Last Admin: 04/15/18 08:08 Dose: 40 mg Rivaroxaban (Xarelto) 15 mg PO DAILY [facility]; Protocol Last Admin: 04/15/18 08:30 Dose: 15 mg Zolpidem Tartrate (Ambien) 5 mg PO HS PRN PRN Reason: Insomnia - Labs Labs: 04/13/18 06:00 04/13/18 06:00 PT 16.5 Seconds (9.8-13.1) H 04/13/18 06:00 INR 1.5 04/13/18 06:00 - Constitutional Appears: Well, Non-toxic - Head Exam Head Exam: ATRAUMATIC, NORMOCEPHALIC Additional comments: healing rt fore head rash - Eye Exam Eye Exam: EOMI, Normal appearance Pupil Exam: NORMAL ACCOMODATION, PERRL - ENT Exam ENT Exam: Mucous Membranes Moist, Normal Exam - Neck Exam Neck Exam: Full ROM, Normal Inspection - Respiratory Exam Respiratory Exam: Clear to Ausculation Bilateral, NORMAL BREATHING PATTERN - Cardiovascular Exam Cardiovascular Exam: REGULAR RHYTHM, +S1, +S2 - GI/Abdominal Exam GI & Abdominal Exam: Soft, Normal Bowel Sounds - Extremities Exam Extremities Exam: Full ROM, Normal Capillary Refill, Normal Inspection - Neurological Exam Neurological Exam: Alert, Awake, CN II-XII Intact, Normal Gait, Oriented x3 - Skin Skin Exam: Normal Color, Rash, Warm Additional comments: rt fore head healing zoster ophthalmicus Assessment and Plan - Assessment and Plan (Free Text) Assessment: 82 yo female with htn, hyponatremia, RA, OA, Afib, Depression s/p fall rt trini aletha FX , s/p ORIF , herpes zoster ophthalmicus is here for physical therapy 1. HTN, 2. S/p orif rt humerus 3. Herpes Zoster opthalmicus 4. Depression 5. Insomnia c/w current meds d/w Dr. Duarte d/c iso when cleared by ID c/w PT/OT
--- NOTE | 2018-04-15 19:04 | CP.PCM.PN ---
Subjective - Date & Time of Evaluation Date of Evaluation: 04/15/18 Time of Evaluation: 09:00 - Subjective Subjective: rash resolving Objective - Vital Signs/Intake and Output Vital Signs (last 24 hours): Temp Pulse Resp BP Pulse Ox 97.2 F L 88 20 124/70 100 04/15/18 16:27 04/15/18 16:27 04/15/18 16:27 04/15/18 16:27 04/15/18 16:27 - Medications Medications: Current Medications Acyclovir (Zovirax) 800 mg PO 5XD [facility]; Protocol Last Admin: 04/15/18 17:42 Dose: 800 mg Atropine Sulfate (Atropine 1% Oph Soln) 1 drop OU BID [facility] Last Admin: 04/15/18 17:46 Dose: 1 drop Ciprofloxacin (Ciloxan 0.3% Ophth Soln) 1 drop OD QID [facility] Last Admin: 04/15/18 17:55 Dose: 1 drop Gabapentin (Neurontin) 300 mg PO TID [facility] Last Admin: 04/15/18 17:43 Dose: 300 mg Home Med (Tofacitinib Citrate [Xeljanz]) 10 mg PO DAILY [facility] Home Med (Vortioxetine Hydrobromide [Trintellix]) 5 mg PO DAILY [facility] Home Med (Patient's Own Medication) 0.3 unit OU HS [facility] Last Admin: 04/14/18 21:28 Dose: 0.3 unit Home Med (Patient's Own Medication) 1 unit OU QID [facility] Last Admin: 04/15/18 17:41 Dose: 1 unit Home Med (Patient's Own Medication) 1 unit OU QID [facility] Last Admin: 04/15/18 18:01 Dose: 1 unit Home Med (Patient's Own Medication) 1 unit OU BID [facility] Last Admin: 04/15/18 17:50 Dose: 1 unit Influenza Virus Vaccine (Fluzone High-Dose(65yr Up)Pf) 180 mcg IM .ONCE ONE Stop: 04/15/18 18:39 Mirtazapine (Remeron) 7.5 mg PO DAILY@2200 [facility] Last Admin: 04/14/18 23:15 Dose: 7.5 mg Aplkp-9-Tzju Ethyl Esters (Lovaza) 1 gm PO DAILY [facility] Last Admin: 04/15/18 08:29 Dose: 1 gm Oxycodone/Acetaminophen (Percocet 5/325 Mg Tab) 1 tab PO Q6 PRN PRN Reason: for pain level 4-7 Last Admin: 04/15/18 12:07 Dose: 1 tab Pantoprazole Sodium (Protonix Ec Tab) 40 mg PO ACB [facility] Last Admin: 04/15/18 08:08 Dose: 40 mg Rivaroxaban (Xarelto) 15 mg PO DAILY [facility]; Protocol Last Admin: 04/15/18 08:30 Dose: 15 mg Zolpidem Tartrate (Ambien) 5 mg PO HS PRN PRN Reason: Insomnia - Labs Labs: 04/13/18 06:00 04/13/18 06:00 PT 16.5 Seconds (9.8-13.1) H 04/13/18 06:00 INR 1.5 04/13/18 06:00 - Constitutional Appears: Non-toxic, Chronically Ill - Head Exam Head Exam: NORMOCEPHALIC - Eye Exam Eye Exam: PERRL - ENT Exam ENT Exam: Mucous Membranes Dry - Neck Exam Neck Exam: absent: Lymphadenopathy - Respiratory Exam Respiratory Exam: Decreased Breath Sounds - Cardiovascular Exam Cardiovascular Exam: REGULAR RHYTHM - GI/Abdominal Exam GI & Abdominal Exam: Distended - Rectal Exam Rectal Exam: Deferred - Extremities Exam Extremities Exam: absent: Joint Swelling - Back Exam Back Exam: absent: CVA tenderness (L), CVA tenderness (R) Assessment and Plan (1) VZV (varicella-zoster virus) infection Status: Acute (2) Zoster ophthalmicus Status: Acute (3) Zoster ophthalmicus Status: Acute (4) Herpes zoster ophthalmicus of right eye Status: Acute (5) Herpes zoster ophthalmicus of right eye Status: Acute - Assessment and Plan (Free Text) Assessment: rash resolving ok to d/c iso
[2018-04-15] MEDS: CIPROFLOXACIN OU SCH (22:20)
--- NOTE | 2018-04-16 07:40 | CP.PCM.PN ---
Subjective - Date & Time of Evaluation Date of Evaluation: 04/16/18 Time of Evaluation: 08:14 - Subjective Subjective: Patient states her shoulder is not causing her any pain, and she is tolerating increased PT well. Objective - Vital Signs/Intake and Output Vital Signs (last 24 hours): Temp Pulse Resp BP Pulse Ox 97.9 F 97 H 20 128/76 97 04/15/18 19:40 04/15/18 19:40 04/15/18 19:40 04/15/18 19:40 04/15/18 19:40 - Medications Medications: Current Medications Acyclovir (Zovirax) 800 mg PO 5XD [facility]; Protocol Last Admin: 04/15/18 22:18 Dose: 800 mg Atropine Sulfate (Atropine 1% Oph Soln) 1 drop OU BID [facility] Last Admin: 04/15/18 17:46 Dose: 1 drop Ciprofloxacin (Ciloxan 0.3% Ophth Soln) 1 drop OD QID [facility] Last Admin: 04/15/18 21:45 Dose: 1 drop Gabapentin (Neurontin) 300 mg PO TID [facility] Last Admin: 04/15/18 17:43 Dose: 300 mg Home Med (Tofacitinib Citrate [Xeljanz]) 10 mg PO DAILY [facility] Home Med (Vortioxetine Hydrobromide [Trintellix]) 5 mg PO DAILY [facility] Home Med (Patient's Own Medication) 0.3 unit OU HS [facility] Last Admin: 04/15/18 22:20 Dose: 0.3 unit Home Med (Patient's Own Medication) 1 unit OU QID [facility] Last Admin: 04/15/18 22:19 Dose: 1 unit Home Med (Patient's Own Medication) 1 unit OU QID [facility] Last Admin: 04/15/18 22:20 Dose: 1 unit Home Med (Patient's Own Medication) 1 unit OU BID [facility] Last Admin: 04/15/18 17:50 Dose: 1 unit Mirtazapine (Remeron) 7.5 mg PO DAILY@2200 [facility] Last Admin: 04/15/18 22:18 Dose: 7.5 mg Efptj-5-Ouzm Ethyl Esters (Lovaza) 1 gm PO DAILY [facility] Last Admin: 04/15/18 08:29 Dose: 1 gm Oxycodone/Acetaminophen (Percocet 5/325 Mg Tab) 1 tab PO Q6 PRN PRN Reason: for pain level 4-7 Last Admin: 04/15/18 12:07 Dose: 1 tab Pantoprazole Sodium (Protonix Ec Tab) 40 mg PO ACB [facility] Last Admin: 04/15/18 08:08 Dose: 40 mg Rivaroxaban (Xarelto) 15 mg PO DAILY [facility]; Protocol Last Admin: 04/15/18 08:30 Dose: 15 mg Zolpidem Tartrate (Ambien) 5 mg PO HS PRN PRN Reason: Insomnia - Labs Labs: 04/13/18 06:00 04/13/18 06:00 PT 16.5 Seconds (9.8-13.1) H 04/13/18 06:00 INR 1.5 04/13/18 06:00 - Extremities Exam Additional comments: RUE: incision well lhealed, +ROM fingers, wrist, sensation intact, sling intact, +radial pulse Assessment and Plan (1) Closed fracture of shaft of right humerus Assessment & Plan: 3 weeks s/p ORIF right humerus gentle ROM with PT orthopedically stable f/u with Dr. Loja upon discharge 1-2 weeks call for appt cont PT/OT d/w Dr. Loja, agrees with above Status: Inactive
[2018-04-16] MEDS: Pantoprazole 40 mg EC Tab PO SCH (07:45)
[2018-04-16] MEDS: Omega-3-Acid Ethyl Esters 1 GM Cap PO SCH (08:39)
[2018-04-16] MEDS: Ciprofloxacin 0.3% OPTH SOLN OD SCH ×4 (08:40→22:18)
[2018-04-16] MEDS: CROMOLYN OU SCH ×4 (08:40→22:39)
[2018-04-16] MEDS: ZIRGAN OU SCH ×4 (08:41→22:52)
[2018-04-16] MEDS: Atropine 1% OPTH.SOLN 2ml OU SCH ×2 (08:42→16:52)
[2018-04-16] MEDS: KETOTIFEN OU SCH ×2 (08:43→16:52)
[2018-04-16] MEDS: Oxycodone/Acetaminophen 5/325 mg Tab PO PRN (14:21)
--- NOTE | 2018-04-16 18:00 | CP.PCM.PN ---
Subjective - Date & Time of Evaluation Date of Evaluation: 04/16/18 Time of Evaluation: 18:00 - Subjective Subjective: no complaints, participating in physical therapy skin jackson fore head is healing Objective - Vital Signs/Intake and Output Vital Signs (last 24 hours): Temp Pulse Resp BP Pulse Ox 97.3 F L 89 20 124/60 99 04/16/18 07:49 04/16/18 07:49 04/16/18 07:49 04/16/18 07:49 04/16/18 07:49 - Medications Medications: Current Medications Acyclovir (Zovirax) 800 mg PO 5XD [facility]; Protocol Last Admin: 04/16/18 16:51 Dose: 800 mg Atropine Sulfate (Atropine 1% Oph Soln) 1 drop OU BID [facility] Last Admin: 04/16/18 16:52 Dose: 1 drop Ciprofloxacin (Ciloxan 0.3% Ophth Soln) 1 drop OD QID [facility] Last Admin: 04/16/18 16:51 Dose: 1 drop Gabapentin (Neurontin) 300 mg PO TID [facility] Last Admin: 04/16/18 16:51 Dose: 300 mg Home Med (Tofacitinib Citrate [Xeljanz]) 10 mg PO DAILY [facility] Home Med (Vortioxetine Hydrobromide [Trintellix]) 5 mg PO DAILY [facility] Home Med (Patient's Own Medication) 0.3 unit OU HS [facility] Last Admin: 04/15/18 22:20 Dose: 0.3 unit Home Med (Patient's Own Medication) 1 unit OU QID [facility] Last Admin: 04/16/18 16:52 Dose: 1 unit Home Med (Patient's Own Medication) 1 unit OU QID [facility] Last Admin: 04/16/18 16:51 Dose: 1 unit Home Med (Patient's Own Medication) 1 unit OU BID [facility] Last Admin: 04/16/18 16:52 Dose: 1 unit Mirtazapine (Remeron) 7.5 mg PO DAILY@2200 [facility] Last Admin: 04/15/18 22:18 Dose: 7.5 mg Qwudw-1-Jupj Ethyl Esters (Lovaza) 1 gm PO DAILY [facility] Last Admin: 04/16/18 08:39 Dose: 1 gm Oxycodone/Acetaminophen (Percocet 5/325 Mg Tab) 1 tab PO Q6 PRN PRN Reason: for pain level 4-7 Last Admin: 10/05/18 14:21 Dose: 1 tab Pantoprazole Sodium (Protonix Ec Tab) 40 mg PO ACB [facility] Last Admin: 04/16/18 07:45 Dose: 40 mg Rivaroxaban (Xarelto) 15 mg PO DAILY [facility]; Protocol Last Admin: 04/16/18 08:39 Dose: 15 mg Zolpidem Tartrate (Ambien) 5 mg PO HS PRN PRN Reason: Insomnia - Labs Labs: 04/13/18 06:00 04/13/18 06:00 PT 16.5 Seconds (9.8-13.1) H 04/13/18 06:00 INR 1.5 04/13/18 06:00 - Constitutional Appears: Well, Non-toxic - Head Exam Head Exam: ATRAUMATIC, NORMAL INSPECTION Additional comments: healing rt for head skin rash - Eye Exam Eye Exam: EOMI, Normal appearance, PERRL Pupil Exam: NORMAL ACCOMODATION - ENT Exam ENT Exam: Mucous Membranes Moist, Normal Exam - Neck Exam Neck Exam: Full ROM, Normal Inspection - Respiratory Exam Respiratory Exam: Clear to Ausculation Bilateral, NORMAL BREATHING PATTERN - Cardiovascular Exam Cardiovascular Exam: REGULAR RHYTHM, +S1, +S2 - GI/Abdominal Exam GI & Abdominal Exam: Soft, Normal Bowel Sounds - Rectal Exam Rectal Exam: Deferred - Neurological Exam Neurological Exam: Alert, Awake, CN II-XII Intact, Normal Gait, Oriented x3 - Psychiatric Exam Psychiatric exam: Normal Affect, Normal Mood Assessment and Plan - Assessment and Plan (Free Text) Assessment: 82 yo female with htn, hyponatremia, RA, OA, Afib, Depression s/p fall rt hum erus FX , s/p ORIF , herpes zoster ophthalmicus is here for physical therapy 1. HTN, 2. S/p orif rt humerus 3. Herpes Zoster opthalmicus 4. Depression 5. Insomnia c/w current meds d/w Dr. Duarte d/jeffrey iso by ID c/w PT/OT
[2018-04-16] MEDS: CIPROFLOXACIN OU SCH (23:17)
[2018-04-17] MEDS: Pantoprazole 40 mg EC Tab PO SCH (06:37)
[2018-04-17] MEDS: Omega-3-Acid Ethyl Esters 1 GM Cap PO SCH (08:44)
[2018-04-17] MEDS: Atropine 1% OPTH.SOLN 2ml OU SCH ×2 (08:45→17:07)
[2018-04-17] MEDS: Ciprofloxacin 0.3% OPTH SOLN OD SCH ×4 (08:45→21:07)
[2018-04-17] MEDS: KETOTIFEN OU SCH ×2 (08:45→17:08)
[2018-04-17] MEDS: CROMOLYN OU SCH ×4 (08:46→21:12)
[2018-04-17] MEDS: ZIRGAN OU SCH ×4 (08:46→21:11)
[2018-04-17] MEDS: Oxycodone/Acetaminophen 5/325 mg Tab PO PRN (08:53)
--- NOTE | 2018-04-17 15:15 | CP.PCM.PN ---
Subjective - Date & Time of Evaluation Date of Evaluation: 04/17/18 Time of Evaluation: 15:15 - Subjective Subjective: 82 yo female with htn, hyponatremia, RA, OA, Afib, Depression s/p fall rt humerus FX , s/p ORIF herpes zoster ophthalmicus is here for physical therapy pt is feeling better, no complaints, no sob Objective - Vital Signs/Intake and Output Vital Signs (last 24 hours): Temp Pulse Resp BP Pulse Ox 97.7 F 100 H 20 132/73 99 04/17/18 08:45 04/17/18 08:45 04/17/18 08:45 04/17/18 08:45 04/17/18 08:45 - Medications Medications: Current Medications Atropine Sulfate (Atropine 1% Oph Soln) 1 drop OU BID [facility] Last Admin: 04/17/18 08:45 Dose: 1 drop Ciprofloxacin (Ciloxan 0.3% Ophth Soln) 1 drop OD QID [facility] Last Admin: 04/17/18 12:05 Dose: 1 drop Gabapentin (Neurontin) 300 mg PO TID [facility] Last Admin: 04/17/18 12:05 Dose: 300 mg Home Med (Patient's Own Medication) 0.3 unit OU HS [facility] Last Admin: 04/16/18 23:17 Dose: 0.3 unit Home Med (Patient's Own Medication) 1 unit OU QID [facility] Last Admin: 04/17/18 12:06 Dose: 1 unit Home Med (Patient's Own Medication) 1 unit OU QID [facility] Last Admin: 04/17/18 12:05 Dose: 1 unit Home Med (Patient's Own Medication) 1 unit OU BID [facility] Last Admin: 04/17/18 08:45 Dose: 1 unit Mirtazapine (Remeron) 7.5 mg PO DAILY@2200 [facility] Last Admin: 04/16/18 22:21 Dose: 7.5 mg Kfyxi-5-Vxfv Ethyl Esters (Lovaza) 1 gm PO DAILY [facility] Last Admin: 04/17/18 08:44 Dose: 1 gm Oxycodone/Acetaminophen (Percocet 5/325 Mg Tab) 1 tab PO Q6 PRN PRN Reason: for pain level 4-7 Last Admin: 04/17/18 08:53 Dose: 1 tab Pantoprazole Sodium (Protonix Ec Tab) 40 mg PO ACB [facility] Last Admin: 04/17/18 06:37 Dose: 40 mg Rivaroxaban (Xarelto) 15 mg PO DAILY [facility]; Protocol Last Admin: 04/17/18 08:44 Dose: 15 mg Zolpidem Tartrate (Ambien) 5 mg PO HS PRN PRN Reason: Insomnia - Labs Labs: 04/13/18 06:00 04/13/18 06:00 PT 16.5 Seconds (9.8-13.1) H 04/13/18 06:00 INR 1.5 04/13/18 06:00 - Constitutional Appears: Well, Non-toxic - Head Exam Head Exam: ATRAUMATIC, NORMAL INSPECTION, NORMOCEPHALIC - Eye Exam Eye Exam: EOMI, Normal appearance, PERRL Pupil Exam: NORMAL ACCOMODATION Additional comments: healing skin lesion on rt fore head - ENT Exam ENT Exam: Mucous Membranes Moist - Neck Exam Neck Exam: Full ROM, Normal Inspection - Respiratory Exam Respiratory Exam: Clear to Ausculation Bilateral, NORMAL BREATHING PATTERN - Cardiovascular Exam Cardiovascular Exam: REGULAR RHYTHM, +S1, +S2 - GI/Abdominal Exam GI & Abdominal Exam: Soft, Normal Bowel Sounds - Rectal Exam Rectal Exam: Deferred - Neurological Exam Neurological Exam: Alert, Awake, CN II-XII Intact, Normal Gait, Oriented x3 - Psychiatric Exam Psychiatric exam: Normal Affect - Skin Skin Exam: Normal Color Assessment and Plan - Assessment and Plan (Free Text) Assessment: 82 yo female with htn, hyponatremia, RA, OA, Afib, Depression s/p fall rt humerus FX , s/p ORIF herpes zoster ophthalmicus is here for physical therapy 1. HTN, 2. S/p orif rt humerus 3. Herpes Zoster opthalmicus 4. Depression 5. Insomnia c/w current meds d/jeffrey iso by ID c/w PT/OT
[2018-04-17] MEDS: CIPROFLOXACIN OU SCH (21:11)
[2018-04-18] MEDS: Pantoprazole 40 mg EC Tab PO SCH (06:37)
[2018-04-18] MEDS: Ciprofloxacin 0.3% OPTH SOLN OD SCH ×4 (08:34→21:00)
[2018-04-18] MEDS: Omega-3-Acid Ethyl Esters 1 GM Cap PO SCH (08:34)
[2018-04-18] MEDS: ZIRGAN OU SCH ×4 (08:35→21:32)
[2018-04-18] MEDS: KETOTIFEN OU SCH ×2 (08:36→17:21)
[2018-04-18] MEDS: CROMOLYN OU SCH ×4 (08:36→21:10)
[2018-04-18] MEDS: Atropine 1% OPTH.SOLN 2ml OU SCH (08:36)
[2018-04-18] MEDS: CIPROFLOXACIN OU SCH (21:20)
[2018-04-19] MEDS: Pantoprazole 40 mg EC Tab PO SCH (07:44)
[2018-04-19] MEDS: Omega-3-Acid Ethyl Esters 1 GM Cap PO SCH (08:43)
[2018-04-19] MEDS: Ciprofloxacin 0.3% OPTH SOLN OD SCH ×2 (08:44→21:25)
[2018-04-19] MEDS: ZIRGAN OU SCH ×4 (08:44→21:30)
[2018-04-19] MEDS: KETOTIFEN OU SCH ×2 (08:45→16:21)
[2018-04-19] MEDS: CROMOLYN OU SCH ×4 (08:45→21:28)
--- NOTE | 2018-04-19 08:52 | CP.PCM.PN ---
Subjective - Date & Time of Evaluation Date of Evaluation: 04/19/18 Time of Evaluation: 08:52 - Subjective Subjective: Patient seen and examined at bedside comfortable. Pain is well controlled. Tolerating PT well. No new complaints. Objective - Vital Signs/Intake and Output Vital Signs (last 24 hours): Temp Pulse Resp BP Pulse Ox 97 F L 111 H 18 139/67 98 04/18/18 21:00 04/18/18 21:00 04/18/18 21:00 04/18/18 21:00 04/18/18 21:00 - Medications Medications: Current Medications Ciprofloxacin (Ciloxan 0.3% Oph Soln) 1 drop OD Q12 [facility] Last Admin: 04/19/18 08:44 Dose: 1 drop Gabapentin (Neurontin) 300 mg PO TID [facility] Last Admin: 04/19/18 08:44 Dose: 300 mg Home Med (Patient's Own Medication) 0.3 unit OU HS [facility] Last Admin: 04/18/18 21:20 Dose: 0.3 unit Home Med (Patient's Own Medication) 1 unit OU QID [facility] Last Admin: 04/19/18 08:45 Dose: 1 unit Home Med (Patient's Own Medication) 1 unit OU QID [facility] Last Admin: 04/19/18 08:44 Dose: 1 unit Home Med (Patient's Own Medication) 1 unit OU BID [facility] Last Admin: 04/19/18 08:45 Dose: 1 unit Mirtazapine (Remeron) 7.5 mg PO DAILY@2200 [facility] Last Admin: 04/18/18 21:30 Dose: 7.5 mg Uzsnv-1-Oqqb Ethyl Esters (Lovaza) 1 gm PO DAILY [facility] Last Admin: 04/19/18 08:43 Dose: 1 gm Oxycodone/Acetaminophen (Percocet 5/325 Mg Tab) 1 tab PO Q6 PRN PRN Reason: for pain level 4-7 Last Admin: 04/17/18 08:53 Dose: 1 tab Pantoprazole Sodium (Protonix Ec Tab) 40 mg PO ACB [facility] Last Admin: 04/19/18 07:44 Dose: 40 mg Rivaroxaban (Xarelto) 15 mg PO DAILY [facility]; Protocol Last Admin: 04/19/18 08:43 Dose: 15 mg Zolpidem Tartrate (Ambien) 5 mg PO HS PRN PRN Reason: Insomnia Last Admin: 04/19/18 01:55 Dose: 5 mg - Labs Labs: 04/13/18 06:00 04/13/18 06:00 PT 16.5 Seconds (9.8-13.1) H 04/13/18 06:00 INR 1.5 04/13/18 06:00 - Extremities Exam Additional comments: RUE: intact in sling, surgical wound well healed, no drainage sensation intact MN/UN/RN motor intact MN/UN/RN radial pulse intact Assessment and Plan (1) Zoster ophthalmicus Assessment & Plan: s/p R humerus fx ORIF doing well -Continue sling -PT/OT NWB RUE, continue gentle ROM -orthopedically stable -above d/w Dr. Loja in agreement Status: Acute (2) Closed fracture of shaft of right humerus Status: Inactive
[2018-04-19] MEDS: Oxycodone/Acetaminophen 5/325 mg Tab PO PRN (09:12)
--- NOTE | 2018-04-19 14:27 | CP.PCM.PN ---
Subjective - Date & Time of Evaluation Date of Evaluation: 04/19/18 Time of Evaluation: 14:27 - Subjective Subjective: 82 yo female with htn, hyponatremia, RA, OA, Afib, Depression s/p fall rt humerus FX , s/p ORIF herpes zoster ophthalmicus, is here for physical therapy pt is feeling better, no complaints, no sob, resting comfortably, pt's spouse at bed side Objective - Vital Signs/Intake and Output Vital Signs (last 24 hours): Temp Pulse Resp BP Pulse Ox 97.6 F 86 19 134/67 98 04/19/18 09:00 04/19/18 09:00 04/19/18 09:00 04/19/18 09:00 04/19/18 09:00 - Medications Medications: Current Medications Ciprofloxacin (Ciloxan 0.3% Oph Soln) 1 drop OD Q12 [facility] Last Admin: 04/19/18 08:44 Dose: 1 drop Gabapentin (Neurontin) 300 mg PO TID [facility] Last Admin: 04/19/18 13:45 Dose: 300 mg Home Med (Patient's Own Medication) 0.3 unit OU HS [facility] Last Admin: 04/18/18 21:20 Dose: 0.3 unit Home Med (Patient's Own Medication) 1 unit OU QID [facility] Last Admin: 04/19/18 13:46 Dose: 1 unit Home Med (Patient's Own Medication) 1 unit OU QID [facility] Last Admin: 04/19/18 13:47 Dose: 1 unit Home Med (Patient's Own Medication) 1 unit OU BID [facility] Last Admin: 04/19/18 08:45 Dose: 1 unit Mirtazapine (Remeron) 7.5 mg PO DAILY@2200 [facility] Last Admin: 04/18/18 21:30 Dose: 7.5 mg Vipel-7-Ovpy Ethyl Esters (Lovaza) 1 gm PO DAILY [facility] Last Admin: 04/19/18 08:43 Dose: 1 gm Oxycodone/Acetaminophen (Percocet 5/325 Mg Tab) 1 tab PO Q6 PRN PRN Reason: for pain level 4-7 Last Admin: 04/19/18 09:12 Dose: 1 tab Pantoprazole Sodium (Protonix Ec Tab) 40 mg PO ACB [facility] Last Admin: 04/19/18 07:44 Dose: 40 mg Rivaroxaban (Xarelto) 15 mg PO DAILY [facility]; Protocol Last Admin: 04/19/18 08:43 Dose: 15 mg Zolpidem Tartrate (Ambien) 5 mg PO HS PRN PRN Reason: Insomnia Last Admin: 04/19/18 01:55 Dose: 5 mg - Labs Labs: 04/13/18 06:00 04/13/18 06:00 PT 16.5 Seconds (9.8-13.1) H 04/13/18 06:00 INR 1.5 04/13/18 06:00 - Constitutional Appears: Well, Non-toxic, No Acute Distress - Head Exam Head Exam: ATRAUMATIC, NORMAL INSPECTION, NORMOCEPHALIC - Eye Exam Eye Exam: EOMI, Normal appearance, PERRL Pupil Exam: NORMAL ACCOMODATION Additional comments: healing skin lesions on rt fore head - ENT Exam ENT Exam: Mucous Membranes Moist, Normal Exam - Neck Exam Neck Exam: Full ROM, Normal Inspection - Cardiovascular Exam Cardiovascular Exam: REGULAR RHYTHM, +S1, +S2 - GI/Abdominal Exam GI & Abdominal Exam: Soft, Normal Bowel Sounds Additional comments: non tender, no HSM - Rectal Exam Rectal Exam: Deferred - Neurological Exam Neurological Exam: Alert, Awake, CN II-XII Intact, Oriented x3 Additional comments: ambulating with walker - Skin Skin Exam: Normal Color, Warm Additional comments: healing rt fore head skin lesions Assessment and Plan - Assessment and Plan (Free Text) Assessment: 82 yo female with htn, hyponatremia, RA, OA, Afib, Depression s/p fall rt humerus FX , s/p ORIF herpes zoster ophthalmicus is here for physical therapy 1. HTN, 2. S/p orif rt humerus 3. Herpes Zoster opthalmicus 4. Depression 5. Insomnia c/w current meds d/jeffrey iso by ID c/w PT/OT rx given for 3 in 1 commode due to rt humerus fracture, s/p ORIF, non weight bearing as recommended by Physical therapy possible d/c home on thursday
[2018-04-19 16:54] VITALS: RESP 20
[2018-04-19] MEDS: CIPROFLOXACIN OU SCH (21:32)
[2018-04-20] MEDS: Pantoprazole 40 mg EC Tab PO SCH (06:33)
[2018-04-20] MEDS: Omega-3-Acid Ethyl Esters 1 GM Cap PO SCH (08:28)
[2018-04-20] MEDS: KETOTIFEN OU SCH ×2 (08:29→16:24)
[2018-04-20] MEDS: CROMOLYN OU SCH ×4 (08:29→21:27)
[2018-04-20] MEDS: Ciprofloxacin 0.3% OPTH SOLN OD SCH ×2 (08:29→21:28)
[2018-04-20] MEDS: ZIRGAN OU SCH ×4 (08:30→21:33)
--- NOTE | 2018-04-20 18:34 | CP.PCM.PN ---
Subjective - Date & Time of Evaluation Date of Evaluation: 04/20/18 Time of Evaluation: 18:33 - Subjective Subjective: 82 yo female with htn, hyponatremia, RA, OA, Afib, Depression s/p fall rt humerus FX , s/p ORIF herpes zoster ophthalmicus, is here for physical therapy pt is feeling better, no complaints, no sob, resting comfortably, c/o occ headache, relived with tylenol Objective - Vital Signs/Intake and Output Vital Signs (last 24 hours): Temp Pulse Resp BP Pulse Ox 98.2 F 108 H 20 119/79 96 04/20/18 09:00 04/20/18 09:00 04/20/18 09:00 04/20/18 09:00 04/20/18 09:00 - Medications Medications: Current Medications Acetaminophen (Tylenol 325mg Tab) 650 mg PO Q6 PRN PRN Reason: Pain, moderate (4-7) Last Admin: 04/20/18 17:39 Dose: 650 mg Ciprofloxacin (Ciloxan 0.3% Oph Soln) 1 drop OD Q12 [facility] Last Admin: 04/20/18 08:29 Dose: 1 drop Gabapentin (Neurontin) 300 mg PO TID [facility] Last Admin: 04/20/18 16:23 Dose: 300 mg Home Med (Patient's Own Medication) 0.3 unit OU HS [facility] Last Admin: 04/19/18 21:32 Dose: 0.3 unit Home Med (Patient's Own Medication) 1 unit OU QID [facility] Last Admin: 04/20/18 16:24 Dose: 1 unit Home Med (Patient's Own Medication) 1 unit OU QID [facility] Last Admin: 04/20/18 16:24 Dose: 1 unit Home Med (Patient's Own Medication) 1 unit OU BID [facility] Last Admin: 04/20/18 16:24 Dose: 1 unit Mirtazapine (Remeron) 7.5 mg PO DAILY@2200 [facility] Last Admin: 04/19/18 21:24 Dose: 7.5 mg Qovfr-2-Oxff Ethyl Esters (Lovaza) 1 gm PO DAILY [facility] Last Admin: 04/20/18 08:28 Dose: 1 gm Oxycodone/Acetaminophen (Percocet 5/325 Mg Tab) 1 tab PO Q6 PRN PRN Reason: for pain level 4-7 Last Admin: 04/19/18 09:12 Dose: 1 tab Pantoprazole Sodium (Protonix Ec Tab) 40 mg PO ACB [facility] Last Admin: 04/20/18 06:33 Dose: 40 mg Rivaroxaban (Xarelto) 15 mg PO DAILY [facility]; Protocol Last Admin: 04/20/18 08:28 Dose: 15 mg Zolpidem Tartrate (Ambien) 5 mg PO HS PRN PRN Reason: Insomnia Last Admin: 04/19/18 01:55 Dose: 5 mg - Labs Labs: 04/13/18 06:00 04/13/18 06:00 PT 16.5 Seconds (9.8-13.1) H 04/13/18 06:00 INR 1.5 04/13/18 06:00 Assessment and Plan - Assessment and Plan (Free Text) Plan: 82 yo female with htn, hyponatremia, RA, OA, Afib, Depression s/p fall rt humerus FX , s/p ORIF herpes zoster ophthalmicus is here for physical therapy 1. HTN, 2. S/p orif rt humerus 3. Herpes Zoster opthalmicus 4. Depression 5. Insomnia c/w current meds c/w PT/OT will check cbc, cmp, u/a, tsh, fasting lipid profile in am possible d/c home on thursday
[2018-04-20] MEDS: CIPROFLOXACIN OU SCH (21:31)
[2018-04-21 06:23] LABS: SQUAMOUS EPITHIAL < 1 /hpf (0-5); URINE BACTERIA RARE (<OCC); URINE BILIRUBIN NEGATIVE (NEGATIVE); URINE BLOOD NEGATIVE (NEGATIVE); URINE CLARITY CLEAR (Clear); URINE COLOR YELLOW (YELLOW); URINE GLUCOSE (UA) NEG (Normal); URINE LEUKOCYTE ESTERASE NEG Leu/uL (Negative); URINE PROTEIN NEGATIVE (NEGATIVE); URINE UROBILINOGEN 0.2-1.0 mg/dL (0.2-1.0)
[2018-04-21 06:44] LABS: BASO # 0.1 K/uL (0.0-0.2); EOS # 0.4 K/uL (0.0-0.7); EOS % 6.3 % (0.0-4.0); HEMOGLOBIN 9.7 g/dL (12.0-16.0); LYMPH % 15.8 % (20.0-40.0); MEAN CELL VOLUME 92.8 fl (81.0-99.0); MEAN CORPUSCULAR HEMOGLOBIN 31.6 pg (27.0-31.0); MEAN CORPUSCULAR HGB CONC 34.1 g/dL (33.0-37.0); MEAN PLATELET VOLUME 7.6 fl (7.2-11.7); MONO # 0.7 K/uL (0.0-0.8); NEUT % 64.9 % (50.0-75.0); RBC 3.08 Mil/uL (3.80-5.20); RED CELL DISTRIBUTION WIDTH 18.7 % (11.5-14.5); WHITE BLOOD COUNT 6.1 K/uL (4.8-10.8)
[2018-04-21] MEDS: Pantoprazole 40 mg EC Tab PO SCH (06:47)
[2018-04-21 06:57] LABS: ALB/GLOB RATIO 0.6 (1.0-2.1); ALBUMIN 3.2 g/dL (3.5-5.0); CALCIUM 8.9 mg/dL (8.4-10.2)
[2018-04-21] MEDS: Ciprofloxacin 0.3% OPTH SOLN OD SCH (08:54)
[2018-04-21] MEDS: KETOTIFEN OU SCH (09:16)
[2018-04-21] MEDS: Omega-3-Acid Ethyl Esters 1 GM Cap PO SCH (09:17)
[2018-04-21] MEDS: ZIRGAN OU SCH ×2 (09:23→12:28)
[2018-04-21] MEDS: CROMOLYN OU SCH ×2 (09:28→12:23)
--- NOTE | 2018-04-21 11:19 | CP.PCM.DIS ---
Provider - Provider Date of Admission: 04/12/18 17:03 Attending physician: Tam Pettit MD Hospital Course - Lab Results Lab Results: Most Recent Lab Values WBC 6.1 K/uL (4.8-10.8) 04/21/18 06:30 RBC 3.08 Mil/uL (3.80-5.20) L 04/21/18 06:30 Hgb 9.7 g/dL (12.0-16.0) L 04/21/18 06:30 Hct 28.6 % (34.0-47.0) L 04/21/18 06:30 MCV 92.8 fl (81.0-99.0) D 04/21/18 06:30 MCH 31.6 pg (27.0-31.0) H 04/21/18 06:30 MCHC 34.1 g/dL (33.0-37.0) 04/21/18 06:30 RDW 18.7 % (11.5-14.5) H 04/21/18 06:30 Plt Count 301 K/uL (130-400) 04/21/18 06:30 MPV 7.6 fl (7.2-11.7) 04/21/18 06:30 Neut % (Auto) 64.9 % (50.0-75.0) 04/21/18 06:30 Lymph % (Auto) 15.8 % (20.0-40.0) L 04/21/18 06:30 [place] % (Auto) 12.0 % (0.0-10.0) H 04/21/18 06:30 Eos % (Auto) 6.3 % (0.0-4.0) H 04/21/18 06:30 Baso % (Auto) 1.0 % (0.0-2.0) 04/21/18 06:30 Neut # (Auto) 4.0 K/uL (1.8-7.0) 04/21/18 06:30 Lymph # (Auto) 1.0 K/uL (1.0-4.3) 04/21/18 06:30 [place] # (Auto) 0.7 K/uL (0.0-0.8) 04/21/18 06:30 Eos # (Auto) 0.4 K/uL (0.0-0.7) 04/21/18 06:30 Baso # (Auto) 0.1 K/uL (0.0-0.2) 04/21/18 06:30 PT 16.5 Seconds (9.8-13.1) H 04/13/18 06:00 INR 1.5 04/13/18 06:00 Sodium 141 mmol/l (132-148) 04/21/18 06:30 Potassium 4.2 MMOL/L (3.6-5.0) 04/21/18 06:30 Chloride 102 mmol/L (98-107) 04/21/18 06:30 Carbon Dioxide 31 mmol/L (22-30) H 04/21/18 06:30 Anion Gap 12 (10-20) 04/21/18 06:30 BUN 16 mg/dl (7-17) 04/21/18 06:30 Creatinine 1.2 mg/dl (0.7-1.2) 04/21/18 06:30 Est GFR ( Amer) 52 04/21/18 06:30 Est GFR (Non-Af Amer) 43 04/21/18 06:30 Random Glucose 99 mg/dL (65-105) 04/21/18 06:30 Calcium 8.9 mg/dL (8.4-10.2) 04/21/18 06:30 Phosphorus 5.3 mg/dl (2.5-4.5) H 04/21/18 06:30 Magnesium 1.8 MG/DL (1.6-2.3) 04/21/18 06:30 Total Bilirubin 0.6 mg/dl (0.2-1.3) 04/21/18 06:30 AST 33 U/L (14-36) 04/21/18 06:30 ALT 35 U/L (9-52) 04/21/18 06:30 Alkaline Phosphatase 173 U/L (38-126) H 04/21/18 06:30 Total Protein 8.7 G/DL (6.3-8.2) H 04/21/18 06:30 Albumin 3.2 g/dL (3.5-5.0) L 04/21/18 06:30 Globulin 5.4 gm/dL (2.2-3.9) H 04/21/18 06:30 Albumin/Globulin Ratio 0.6 (1.0-2.1) L 04/21/18 06:30 Triglycerides 46 mg/DL (0-149) 04/21/18 06:30 Cholesterol 102 mg/dL (0-199) 04/21/18 06:30 LDL Cholesterol Direct 48 mg/dL (0-129) 04/21/18 06:30 HDL Cholesterol 28 MG/DL (30-70) L 04/21/18 06:30 TSH 3rd Generation 2.82 mIU/ML (0.46-4.68) 04/21/18 06:30 Urine Color Yellow (YELLOW) 04/21/18 05:05 Urine Clarity Clear (Clear) 04/21/18 05:05 Urine pH 6.0 (5.0-8.0) 04/21/18 05:05 Ur Specific [place] 1.008 (1.003-1.030) 04/21/18 05:05 Urine Protein Negative mg/dL (NEGATIVE) 04/21/18 05:05 Urine Glucose (UA) Neg mg/dL (Normal) 04/21/18 05:05 Urine Ketones Negative mg/dL (NEGATIVE) 04/21/18 05:05 Urine Blood Negative (NEGATIVE) 04/21/18 05:05 Urine Nitrate Negative (NEGATIVE) 04/21/18 05:05 Urine Bilirubin Negative (NEGATIVE) 04/21/18 05:05 Urine Urobilinogen 0.2-1.0 mg/dL (0.2-1.0) 04/21/18 05:05 Ur Leukocyte Esterase Neg [place]/uL (Negative) 04/21/18 05:05 Urine RBC (Auto) 2 /hpf (0-3) 04/21/18 05:05 Urine Microscopic WBC 1 /hpf (0-5) 04/21/18 05:05 Ur Squamous Epith Cells < 1 /hpf (0-5) 04/21/18 05:05 Urine Bacteria Rare (<OCC) 04/21/18 05:05 Discharge Exam - Head Exam Head Exam: ATRAUMATIC, NORMAL INSPECTION, NORMOCEPHALIC Discharge Plan - Follow Up Plan Condition: GOOD Disposition: HOME/ ROUTINE Instructions: Shingles (DC)
[2018-04-21 11:39] VITALS: BP 141/58; PULSE 98; TEMP 97; O2SAT 99
--- NOTE | 2018-04-21 12:04 | CP.PCM.PN ---
Subjective - Date & Time of Evaluation Date of Evaluation: 04/21/18 Time of Evaluation: 09:00 - Subjective Subjective: Patient seen and examined OOB comfortable. No complaints of pain. No new complaints. Denies CP/SOB/dizziness/fever. To be discharged home today. Objective - Vital Signs/Intake and Output Vital Signs (last 24 hours): Temp Pulse Resp BP Pulse Ox 97.0 F L 98 H 20 141/58 L 99 04/21/18 09:00 04/21/18 09:00 04/21/18 09:00 04/21/18 09:00 04/21/18 09:00 - Medications Medications: Current Medications Acetaminophen (Tylenol 325mg Tab) 650 mg PO Q6 PRN PRN Reason: Pain, moderate (4-7) Last Admin: 04/21/18 08:53 Dose: 650 mg Ciprofloxacin (Ciloxan 0.3% Ophth Soln) 1 drop OD Q12 [facility] Last Admin: 04/21/18 08:54 Dose: 1 drop Gabapentin (Neurontin) 300 mg PO TID [facility] Last Admin: 04/21/18 09:16 Dose: 300 mg Home Med (Patient's Own Medication) 0.3 unit OU HS [facility] Last Admin: 04/20/18 21:31 Dose: 0.3 unit Home Med (Patient's Own Medication) 1 unit OU QID [facility] Last Admin: 04/21/18 09:28 Dose: 1 unit Home Med (Patient's Own Medication) 1 unit OU QID [facility] Last Admin: 04/21/18 09:23 Dose: 1 unit Home Med (Patient's Own Medication) 1 unit OU BID [facility] Last Admin: 04/21/18 09:16 Dose: 1 unit Mirtazapine (Remeron) 7.5 mg PO DAILY@2200 [facility] Last Admin: 04/20/18 21:23 Dose: 7.5 mg Nvpav-2-Jzqx Ethyl Esters (Lovaza) 1 gm PO DAILY [facility] Last Admin: 04/21/18 09:17 Dose: 1 gm Oxycodone/Acetaminophen (Percocet 5/325 Mg Tab) 1 tab PO Q6 PRN PRN Reason: for pain level 4-7 Last Admin: 04/19/18 09:12 Dose: 1 tab Pantoprazole Sodium (Protonix Ec Tab) 40 mg PO ACB [facility] Last Admin: 04/21/18 06:47 Dose: 40 mg Rivaroxaban (Xarelto) 15 mg PO DAILY [facility]; Protocol Last Admin: 04/21/18 09:17 Dose: 15 mg Zolpidem Tartrate (Ambien) 5 mg PO HS PRN PRN Reason: Insomnia Last Admin: 04/19/18 01:55 Dose: 5 mg - Labs Labs: 04/21/18 06:30 04/21/18 06:30 PT 16.5 Seconds (9.8-13.1) H 04/13/18 06:00 INR 1.5 04/13/18 06:00 - Extremities Exam Additional comments: RUE: intact in sling, surgical wound well healed, no drainage sensation intact MN/UN/RN motor intact MN/UN/RN radial pulse intact Assessment and Plan (1) Zoster ophthalmicus Status: Acute (2) Closed fracture of shaft of right humerus Assessment & Plan: s/p R humerus fx ORIF doing well -PT/OT NWB RUE, gentle ROM -orthopedically stable for discharge -f/u in office within as scheduled -above d/w Dr. Loja in agreement Status: Inactive
== END 2018-04-21 13:20 | disposition home or self-care (01) | DRG 560 ==
LOC: H.TCU 17:03
PROVIDERS: ADMIT Internal Medicine Nephrology; ATTEND Internal Medicine Nephrology
PROC: F07Z9FZ Gait Training/Functional Ambulation Treatment using Assistive, Adaptive, Supportive or Protective Equipment (ICD-10-PCS; principal; 2018-04-12)
PROC: F08Z1FZ Dressing Techniques Treatment using Assistive, Adaptive, Supportive or Protective Equipment (ICD-10-PCS; 2018-04-12)
PROC: F07L6GZ Therapeutic Exercise Treatment of Musculoskeletal System - Lower Back / Lower Extremity using Aerobic Endurance and Conditioning Equipment (ICD-10-PCS; 2018-04-12)
PROC: F07Z5FZ Bed Mobility Treatment using Assistive, Adaptive, Supportive or Protective Equipment (ICD-10-PCS; 2018-04-12)
PROC: F08Z1FZ Dressing Techniques Treatment using Assistive, Adaptive, Supportive or Protective Equipment (ICD-10-PCS; 2018-04-12)
PROC: 3E02340 Introduction of Influenza Vaccine into Muscle, Percutaneous Approach (ICD-10-PCS; 2018-04-12)
DX: S42.301D Unspecified fracture of shaft of humerus, right arm, subsequent encounter for fracture with routine healing (principal); B02.30 Zoster ocular disease, unspecified; B00.52 Herpesviral keratitis; X58.XXXD Exposure to other specified factors, subsequent encounter; F32.9 Major depressive disorder, single episode, unspecified; I10 Essential (primary) hypertension; I25.10 Atherosclerotic heart disease of native coronary artery without angina pectoris; I48.91 Unspecified atrial fibrillation; Z79.01 Long term (current) use of anticoagulants; Z95.0 Presence of cardiac pacemaker; M06.9 Rheumatoid arthritis, unspecified; Z23 Encounter for immunization; G47.00 Insomnia, unspecified